=== PATIENT | female | born 1995 | race African-American/Black ===

== ENCOUNTER 2020-12-03 08:42 | Emergency (ER) | payer OTHER ==
[~2020-12-03] VITALS: Ht 157.5 cm; Wt 99.8 kg
[2020-12-03] MEDS ORDERED: IBUPROFEN 600600 M1 PO (11:20)
[2020-12-03] MEDS ORDERED: NORCO 7.5-3251 EACH PO (11:22)
[2020-12-03 11:39] VITALS: BP 142/92
== END 2020-12-03 11:43 | disposition home or self-care (01) ==
LOC: ER 08:42
DX: S06.0X0A Concussion without loss of consciousness, initial encounter (principal); S42.402A Unspecified fracture of lower end of left humerus, initial encounter for closed fracture; S20.212A Contusion of left front wall of thorax, initial encounter; V89.2XXA Person injured in unspecified motor-vehicle accident, traffic, initial encounter; Y93.89 Activity, other specified; Y92.89 Other specified places as the place of occurrence of the external cause; Y99.8 Other external cause status